=== PATIENT | male | born 1980 | race Caucasian/White ===

== ENCOUNTER 2024-03-20 18:50 | Emergency (ER) | payer SELFPAY ==
[2024-03-20 18:59] VITALS: BP 127/91; PULSE 76; RESP 18; TEMP 36.8; O2SAT 99; BMI 40.1
--- NOTE | 2024-03-20 20:21 | ED_ITS ---
HPI - Abdominal Pain 2 General: Chief Complaint: Abdominal Pain Stated Complaint: lump on abdomen Time Seen by Provider: 03/20/24 20:13 History of Present Illness: 44-year-old man who presents to the [facility] room with an intermittent protrusion in his central abdomen that appears to be ventral hernia on a picture that he has on his phone. I discussed with him that it is reducible and that I can get him follow-up with general surgery and they can discuss if it needs repaired. He has had no change in bowel movements. No nausea or vomiting. The hernia is not present right now. He says it bothers him most when he coughs. He also is complaining of a stiffness in his neck. He said that is been there for a while. I discussed that we could try some anti-inflammatories and then maybe he can follow with his primary doctor. He is had no injury. No neurologic deficits. At that point he became angry and said that if I was not going to do anything for him he was going to leave. His exam is benign and I just went ahead and discharged him Related Data Allergies Allergy/AdvReac Type Severity Reaction Status Date / Time No Known Allergies Allergy Verified 03/20/24 19:03 Review of Systems 2 Narrative: Constitutional symptoms: Negative except as documented in HPI. Skin symptoms: Negative except as documented in HPI. Eye symptoms: Negative except as documented in HPI. ENMT symptoms: Negative except as documented in HPI. Respiratory symptoms: Negative except as documented in HPI. Cardiovascular symptoms: Negative except as documented in HPI. Gastrointestinal symptoms: Negative except as documented in HPI. Genitourinary symptoms: Negative except as documented in HPI. Musculoskeletal symptoms: Negative except as documented in HPI. Neurologic symptoms: Negative except as documented in HPI. Psychiatric symptoms: Negative except as documented in HPI. Endocrine symptoms: Negative except as documented in HPI. Physical Exam 2 Narrative: EXAM NARRATIVE: General: Alert, no acute distress. Skin: warm and dry Head: Normocephalic Neck: Trachea midline Eye: Extraocular movements are intact. Ears, nose, mouth and throat: Oral mucosa moist Respiratory: Respirations are non-labored Musculoskeletal: Normal ROM Neurological: Alert and oriented, No focal neurological deficit observed. Psychiatric: Cooperative, appropriate mood & affect. Course 2 Vital Signs: Vital signs: Vital Signs Temperature 98.2 F 03/20/24 18:59 Pulse Rate 76 03/20/24 18:59 Respiratory Rate 18 03/20/24 18:59 Blood Pressure 127/91 03/20/24 18:59 Pulse Oximetry 99 03/20/24 18:59 Oxygen Delivery Me thod Room Air 03/20/24 18:59 MDM - Abdominal Pain Medical Decision Making Assessment and plan: Ventral hernia Neck stiffness ? Patient became angry saying if you are can to do anything for me I am just going to leave . - Discharged home - Discussed plan with patient. Answered any questions. - Evaluation and treatment of this problem were appropriate in the emergency setting. Lab Data 03/20/24 19:55 03/20/24 19:55 No radiology studies performed this visit Discharge Plan Discharge Patient Disposition: Home Clinical Impression: Ventral hernia, Neck stiffness Condition: Stable Discharge Orders: Discharge ED (Routine); Ordered 03/20/24 Ordered By: Alejandra Ocampo Patient Instructions: Opioid Safety, Pain Management Activity Restrictions/Additional Instructions: Thank you for choosing [facility] for your healthcare needs today. Please realize this is an emergency room and that we are providing you with a medical screening exam and this may not be complete and all inclusive of all the testing and or work up that you may need to determine your ailment or severity of your illness. You have been screened and evaluated and felt safe for discharge. Health conditions do change or evolve sometimes and as such it is important that you follow up with your Primary Doctor to be re checked, 3-5 days is a general good time frame for follow up. You are always welcome to return to the ED for re assessment if your symptoms are worsening or you have new concerns Coding Level of Care Code ED Commercial Decorator for Gabrielle Munoz
[2024-03-20 20:33] LABS: Anion Gap 15.4 (5-19); Blood Urea Nitrogen 19 mg/dL (6-20); Calcium 9.4 mg/dL (8.5-10.5); Carbon Dioxide 26 mmol/L (22-29); Chloride 101 mmol/L (98-107); Creatinine Clr Calc Pharmacy 128.7644; Glomerular Filtration Rate 81.9 mL/min (90-130); Glucose 99 mg/dL (65-115); Osmolality Calculated 288 mOsm/kg (285-295); Potassium 4.4 mmol/L (3.5-5.1); Sodium 138 mmol/L (136-145)
[2024-03-20 20:37] LABS: Basophils # 0.1 10^3/uL (0.0-0.1); Basophils % 0.6 %; Eosinophils # 0.8 10^3/uL (0.0-0.8); Eosinophils % 6.2 %; Hematocrit 44.7 % (37-53); Lymphocytes # 4.4 10^3/uL (0.8-4.8); Lymphocytes % 35.6 %; Mean Corpuscular HGB Conc 34.2 g/dL (30-55); Mean Corpuscular Hemoglobin 31.7 pg (27-33); Mean Corpuscular Volume 92.7 fl (82-101); Mean Platelet Volume 10.7 fL (7.4-10.4); Monocytes # 1.1 10^3/uL (0.2-0.9); Monocytes % 8.6 %; Neutrophils # 5.98 10^3/uL (1.8-7.7); Neutrophils % 48.4 %; Nucleated Red Blood Cells % 0 %; Platelet Count 268 10^3/cmm (157-399); Red Blood Count 4.82 10^6/uL (3.85-5.65); Red Cell Distribution Width 12.5 % (12.1-15.1); White Blood Count 12.36 10^3/uL (3.29-11.43)
== END 2024-03-20 20:27 | disposition left against medical advice (07) ==
PROVIDERS: Emergency Medicine; Emergency Provider Emergency Medicine
DX: K43.9 Ventral hernia without obstruction or gangrene (principal); M43.6 Torticollis
CPT/HCPCS: 36415; 80048; 85025; 99283

== ENCOUNTER 2024-04-09 09:24 | Emergency (ER) | payer SELFPAY ==
[2024-04-09 09:46] VITALS: BP 169/96; PULSE 98; RESP 30; TEMP 36.3; O2SAT 99; BMI 38.7
--- NOTE | 2024-04-09 10:00 | CTR_ITS ---
PROCEDURE INFORMATION: Exam: CT Abdomen And Pelvis With Contrast Exam date and time: 04/09/2024 11:16 AM Age: 44 years old Clinical indication: Abdominal pain; Localized; Left upper quadrant (luq); Prior surgery; Surgery date: 6+ months; Surgery type: Appy; Additional info: Luq pain TECHNIQUE: Imaging protocol: Computed tomography of the abdomen and pelvis with contrast. Radiation optimization: All CT scans at this facility use at least one of these dose optimization techniques: automated exposure control; mA and/or kV adjustment per patient size (includes targeted exams where dose is matched to clinical indication); or iterative reconstruction. Contrast material: OMNI 350; Contrast volume: 100 ml; Contrast route: INTRAVENOUS (IV); COMPARISON: CR XR chest 1V portable [id number] 04/09/2024 10:40 AM RADIATION DOSE METRICS: Total DLP (mGy-cm): 1191.43 FINDINGS: Lungs: Lung bases are clear as visualized. Liver: There is diffuse fatty infiltration of the liver. The liver is otherwise normal. Gallbladder and biliary ducts: Normal. No calcified stones. No ductal dilation. Pancreas: Normal. No ductal dilation. Spleen: Normal. No splenomegaly. Adrenal glands: Normal. No mass. Kidneys and ureters: Normal. No hydronephrosis. Stomach and bowel: There are scattered colonic diverticula. No large bowel wall thickening is appreciated. No dilated loops of large or small bowel is appreciated. Appendix: The appendix is not identified. Intraperitoneal space: Unremarkable. No free air. No significant fluid collection. Vasculature: The aorta is normal in caliber. There is calcified plaque involving the aorta and its branch vessels. Lymph nodes: Unremarkable. No enlarged lymph nodes. Urinary bladder: Unremarkable as visualized. Reproductive: Unremarkable as visualized. Bones/joints: Unremarkable. No acute fracture. Soft tissues: There is a left-sided rectus sheath hematoma measuring 10.9 x 5.9 x 13 cm in size. There appears to be active extravasation of contrast within the hematoma suggesting active bleeding. CT/CT abdomen pelvis w con* [id number] IMPRESSION: 1. Left rectus sheath hematoma with active bleeding. 2. Fatty infiltration of the liver. 3. Scattered colonic diverticula.
--- NOTE | 2024-04-09 10:00 | XR_ITS ---
WS: [id number] XR chest 1V portable [id number] REASON FOR EXAM: cough FINDINGS: The heart and the mediastinum are within normal limits. Calcified granulomas disease in both hemithoraces. No acute pulmonary parenchymal or pleural abnormality. Normal thoracic dextroscoliosis. XR/XR chest 1V portable [id number] IMPRESSION: No acute chest abnormality.
--- NOTE | 2024-04-09 10:01 | ED_ITS ---
HPI - Abdominal Pain 2 General: Chief Complaint: Abdominal Pain Stated Complaint: sever abd pain Time Seen by Provider: 04/09/24 09:55 Source: patient Mode of arrival: ambulatory Limitations: no limitations History of Present Illness: 44-year-old male states he has been havi ng left upper quadrant pain for the last week he states started after a coughing fit states today he sneezed and caused him to have severe pain. He states the pain sharp in nature he rates it a 9 out of 10 currently denies any fever denies any vomiting or diarrhea. Associated Symptoms: Denies chills, diarrhea, dysuria, fever(s), nausea and vomiting Related Data Previous Rx's Medication Instructions Recorded hydrocodone 5 mg-acetaminophen 325 1 tab PO Q6H PRN pain #14 tabs 04/09/24 mg tablet ondansetron 4 mg disintegrating 4 mg PO Q6H PRN nausea and 04/09/24 tablet vomiting #14 tabs Allergies Allergy/AdvReac Type Severity Reaction Status Date / Time No Known Allergies Allergy Verified 03/20/24 19:03 Review of Systems 2 Const: Denies: fever(s), chills, body aches or change in appetite ENMT: Denies: throat pain or dental pain Card: Denies: chest pain Resp: Reports: non-productive cough; Denies: dyspnea GI: Reports: abdominal pain; Denies: nausea, vomiting or diarrhea : Denies: dysuria Musc: Denies: neck pain or back pain Skin/Breast: Denies: rash Neuro: Denies: headache(s) Physical Exam 2 Const: COMMON NORMALS: no acute distress, patient oriented x3 and healthy appearing HENMT: COMMON NORMALS: normocephalic and atraumatic HEAD & SCALP: n ormocephalic and atraumatic Eye: COMMON NORMALS: Equal, round and reactive pupils present and EOMs intact bilaterally PUPIL: Yes Equal, round and reactive pupils present Neck/C-Spine: COMMON NORMALS: full ROM and supple Chest: COMMONS NORMALS: normal inspection of the chest Resp: COMMON NORMALS: normal respiratory effort, No retractions, No use of accessory muscles and clear to auscultation bilaterally AUSCULTATION: clear to auscultation bilaterally Cardio: COMMON NORMALS: regular rate, regular rhythm and No murmurs present (Cardio) RATE: regular rate RHYTHM: regular rhythm GI: COMMON NORMALS: Normal to inspection, nondistended, normoactive bowel sounds present, Soft to palpation and no masses PALPATION: Yes Soft to palpation OTHER: luq tenderness Extremity: COMMON NORMALS: normal to inspection and full ROM Neuro: COMMON NORMALS: patient oriented x3, moves all extremities and no focal motor deficits Psych: COMMON NORMALS: mental status grossly normal, Normal thought process present and cooperative THOUGHT PROCESS: Normal thought process present Skin: COMMON NORMALS: no rashes or lesions noted and no wounds GENERAL SKIN EXAM: no rashes or lesions noted Course 2 Vital Signs: Vital signs: Vital Signs Temperature 97.3 F L 04/09/24 09:46 Pulse Rate 65 04/09/24 12:10 Respiratory Rate 30 H 04/09/24 09:46 Blood Pressure 161/101 04/09/24 12:10 Pulse Oximetry 97 04/09/24 12:10 Oxygen Delivery Me thod Room Air 04/09/24 12:10 MDM - Abdominal Pain Medical Decision Making Patient presents here with abdominal pain he does have a rectus sheath hematoma we will prescribe him pain meds he is follow-up with PCP hemoglobin here is normal he is not on any blood thinners he is to return if worsening he understands agrees to plan Medical Records I reviewed the patient's medical records. Lab Data I reviewed the patient's lab results. 04/09/24 10:10 04/09/24 10:10 Labs/Radiology: Radiology Impressions Abdomen/Pelvis CT 04/09/24 10:00 IMPRESSION: 1. Left rectus sheath hematoma with active bleeding. 2. Fatty infiltration of the liver. 3. Scattered colonic diverticula. ADDENDUM: 04/09/24 1146 COMMENT: THIS REPORT CONTAINS FINDINGS THAT MAY BE CRITICAL TO PATIENT CARE. The exam findings were verbally communicated by me to ELAINA COE via telephone conference at 11:44 AM RECORDER HELPER SEISMOGRAPH on 04/09/2024. The findings were acknowledged and understood. Chest X-Ray 04/09/24 10:00 IMPRESSION: No acute chest abnormality. Laboratory Results WBC 16.40 10^3/uL (3.29-11.43) H 04/09/24 10:10 RBC 4.93 10^6/uL (3.85-5.65) 04/09/24 10:10 Hgb 15.20 g/dL (11.27-16.99) 04/09/24 10:10 Hct 45.1 % (37-53) 04/09/24 10:10 MCV 91.5 fl (82-101) 04/09/24 10:10 MCH 30.8 pg (27-33) 04/09/24 10:10 MCHC 33.7 g/dL (30-55) 04/09/24 10:10 RDW 12.3 % (12.1-15.1) 04/09/24 10:10 Plt Count 321 10^3/cmm (157-399) 04/09/24 10:10 MPV 10.6 fL (7.4-10.4) H 04/09/24 10:10 Neut % (Auto) 56.0 % 04/09/24 10:10 Lymph % (Auto) 30.6 % 04/09/24 10:10 [place] % (Auto) 7.7 % 04/09/24 10:10 Eos % (Auto) 4.5 % 04/09/24 10:10 Baso % (Auto) 0.6 % 04/09/24 10:10 Neut # (Auto) 9.18 10^3/uL (1.8-7.7) H 04/09/24 10:10 Lymph # (Auto) 5.0 10^3/uL (0.8-4.8) H 04/09/24 10:10 [place] # (Auto) 1.3 10^3/uL (0.2-0.9) H 04/09/24 10:10 Eos # (Auto) 0.7 10^3/uL (0.0-0.8) 04/09/24 10:10 Baso # (Auto) 0.1 10^3/uL (0.0-0.1) 04/09/24 10:10 Nucleated RBC % (auto) 0 % 04/09/24 10:10 Nucleated RBCs # 0.0 /100WBC 04/09/24 10:10 Sodium 137 mmol/L (136-145) 04/09/24 10:10 Potassium 4.1 mmol/L (3.5-5.1) 04/09/24 10:10 Chloride 101 mmol/L (98-107) 04/09/24 10:10 Carbon Dioxide 22 mmol/L (22-29) 04/09/24 10:10 Anion Gap 18.1 (5-19) 04/09/24 10:10 BUN 13 mg/dL (6-20) 04/09/24 10:10 Creatinine 1.1 mg/dL (0.7-1.2) 04/09/24 10:10 GFR Calculation 73.4 mL/min (90-130) L 04/09/24 10:10 Glucose 125 mg/dL (65-115) H 04/09/24 10:10 Calculated Osmolality 286 mOsm/kg (285-295) 04/09/24 10:10 Calcium 9.2 mg/dL (8.5-10.5) 04/09/24 10:10 Total Bilirubin 0.7 mg/dL (0.15-1.2) 04/09/24 10:10 AST 19 U/L (0-40) 04/09/24 10:10 ALT 25 U/L (0-41) 04/09/24 10:10 Alkaline Phosphatase 86 U/L (40-130) 04/09/24 10:10 Total Protein 7.3 g/dL (6.6-8.7) 04/09/24 10:10 Albumin 4.4 g/dL (3.5-5.2) 04/09/24 10:10 Globulin 2.9 g/dL (1.3-4.6) 04/09/24 10:10 Lipase 42 U/L (13-60) 04/09/24 10:10 All radiology interpretation(s) finalized by discharge Discharge Plan Discharge Patient Disposition: Home Clinical Impression: Hematoma of rectus sheath Condition: Stable Prescriptions: New hydrocodone-acetaminophen 5-325 mg tablet 1 tab PO Q6H PRN (Reason: pain) Qty: 14 0RF ondansetron 4 mg tablet,disintegrating 4 mg PO Q6H PRN (Reason: nausea and vomiting) Qty: 14 0RF Discharge Orders: Discharge ED (Routine); Ordered 04/09/24 Ordered By: Elaina Coe Discharge Diet: Advance as tolerated Discharge Activity: Resume usual activity Patient Instructions: Abdominal Pain (ED) Coding Level of Care Code ED Director Of Clinical Education for Gabrielle Munoz
[2024-04-09] MEDS: ondansetron 2 mg/ML SDV 2 mL 4 MG IVP (10:18)
[2024-04-09 10:20] VITALS: BP 156/103; PULSE 70; O2SAT 97
[2024-04-09] MEDS: HYDROmorphone 1 mg/mL INJ 1 mL IVP ×2 (10:21→12:07)
[2024-04-09 10:30] LABS: Basophils # 0.1 10^3/uL (0.0-0.1); Basophils % 0.6 %; Eosinophils # 0.7 10^3/uL (0.0-0.8); Eosinophils % 4.5 %; Hematocrit 45.1 % (37-53); Lymphocytes % 30.6 %; Mean Corpuscular HGB Conc 33.7 g/dL (30-55); Mean Corpuscular Hemoglobin 30.8 pg (27-33); Mean Corpuscular Volume 91.5 fl (82-101); Mean Platelet Volume 10.6 fL (7.4-10.4); Monocytes # 1.3 10^3/uL (0.2-0.9); Monocytes % 7.7 %; Neutrophils # 9.18 10^3/uL (1.8-7.7); Nucleated Red Blood Cells % 0 %; Platelet Count 321 10^3/cmm (157-399); Red Blood Count 4.93 10^6/uL (3.85-5.65); Red Cell Distribution Width 12.3 % (12.1-15.1)
[2024-04-09 10:47] LABS: Alanine Aminotransferase 25 U/L (0-41); Albumin Level 4.4 g/dL (3.5-5.2); Alkaline Phosphatase 86 U/L (40-130); Anion Gap 18.1 (5-19); Aspartate Amino Transferase 19 U/L (0-40); Blood Urea Nitrogen 13 mg/dL (6-20); Calcium 9.2 mg/dL (8.5-10.5); Carbon Dioxide 22 mmol/L (22-29); Chloride 101 mmol/L (98-107); Creatinine Clr Calc Pharmacy 114.8134; Globulin 2.9 g/dL (1.3-4.6); Glomerular Filtration Rate 73.4 mL/min (90-130); Glucose 125 mg/dL (65-115); Lipase 42 U/L (13-60); Osmolality Calculated 286 mOsm/kg (285-295); Potassium 4.1 mmol/L (3.5-5.1); Sodium 137 mmol/L (136-145); Total Bilirubin 0.7 mg/dL (0.15-1.2); Total Protein 7.3 g/dL (6.6-8.7)
[2024-04-09 11:00] VITALS: BP 156/102; PULSE 69; O2SAT 96
[2024-04-09] MEDS: iohexol 350 mg/mL 500 mL Btl (per mL) IV (11:18)
[2024-04-09 12:10] VITALS: BP 161/101; PULSE 65; O2SAT 97
[2024-04-09 12:35] VITALS: BP 156/94; PULSE 78; O2SAT 98
== END 2024-04-09 12:36 | disposition home or self-care (01) ==
PROVIDERS: Emergency Medicine; Emergency Provider Emergency Medicine
DX: S36.62XA Contusion of rectum, initial encounter (principal); X58.XXXA Exposure to other specified factors, initial encounter
CPT/HCPCS: 36415; 71045; 74177; 80053; 83690; 85025; 96374; 96375; 96376; 99285; J1171; J2405

== ENCOUNTER 2024-06-27 20:24 | Emergency (ER) | payer SELFPAY ==
[2024-06-27 20:27] VITALS: BP 154/89; PULSE 92; RESP 18; TEMP 37; O2SAT 97; BMI 40.1
[2024-06-27 21:18] LABS: Influenza A NEGATIVE (Negative); Influenza B NEGATIVE (Negative); Respiratory Syncytial Virus Ce NEGATIVE (Negative); SARS-CoV-2 PCR NEGATIVE (Negative)
--- NOTE | 2024-06-27 22:09 | XRR_ITS ---
PROCEDURE INFORMATION: Exam: XR Chest Exam date and time: 06/27/2024 10:12 PM Age: 44 years old Clinical indication: C/O cough TECHNIQUE: Imaging protocol: Radiologic exam of the chest. Views: 1 view. COMPARISON: CR XR chest 1V portable [id number] 04/09/2024 10:40 AM FINDINGS: Lungs: Unremarkable. Pleural spaces: Unremarkable. Heart/Mediastinum: Nonenlarged heart. Bones/joints: No acute fracture. XR/XR chest 1V portable [id number] IMPRESSION: No acute abnormality.
--- NOTE | 2024-06-27 22:09 | CTR_ITS ---
PROCEDURE INFORMATION: Exam: CT Abdomen And Pelvis With Contrast Exam date and time: 06/27/2024 10:31 PM Age: 44 years old Clinical indication: Other: Ruq swelling; Abdominal pain; Localized; Right upper quadrant (ruq); Prior surgery; Surgery date: 6+ months; Surgery type: Appy; PT C/O ruq abd wall pain with swelling that hurts whenever he coughs. ; Additional info: Severe RT abd pain, swelling to RT abd TECHNIQUE: Imaging protocol: Computed tomography of the abdomen and pelvis with contrast. Radiation optimization: All CT scans at this facility use at least one of these dose optimization techniques: automated exposure control; mA and/or kV adjustment per patient size (includes targeted exams where dose is matched to clinical indication); or iterative reconstruction. Contrast material: OMNI 350; Contrast volume: 100 ml; Contrast route: INTRAVENOUS (IV); COMPARISON: CT abdomen pelvis w con* [id number] 04/09/2024 11:16 AM RADIATION DOSE METRICS: Total DLP (mGy-cm): 1085.75 FINDINGS: Lungs: Partially visualized mild patchy opacities and tree-in-bud nodules in the lower lungs. Liver: Unremarkable. Gallbladder and biliary ducts: Gallbladder is present. Pancreas: Unremarkable. Spleen: Unremarkable. Adrenal glands: Unremarkable. Kidneys and ureters: Unremarkable. No urinary tract stone or dilation. Stomach and bowel: Unremarkable. No bowel obstruction. Appendix: The appendix is not seen. Intraperitoneal space: No free air. No large fluid collection. Vasculature: Mild calcified aortic atherosclerosis. Patent abdominal branch vessels. Lymph nodes: No enlarged lymph nodes. Urinary bladder: Unremarkable as visualized. Reproductive: No obvious abnormality. Bones/joints: Mild degenerative changes. No acute fracture. Soft tissues: In the soft tissues there is a small region of heterogeneous enlargement involving the right upper rectus musculature, likely a rectus sheath hematoma, 9.8 x 3.[address]/CT abdomen pelvis w con* [id number] IMPRESSION: 1. Small right upper rectus sheath hematoma. 2. Mild partially visualized lower lung opacities, which could indicate aspiration and/or pneumonia.
--- NOTE | 2024-06-27 22:18 | ED_ITS ---
HPI - URI/Sore Throat 2 General: Chief Complaint: Upper Respiratory Infection Stated Complaint: Nausa,Coughing, Feels like he tore a musle Time Seen by Provider: 06/27/24 21:51 Source: patient Mode of arrival: ambulatory Limitations: no limitations History of Present Illness: Patient is a 44-year-old male who presents to the emergency department complaining of cough and abdominal pain for the past few days. He states that in the past he had an upper respiratory infection and cough so hard that he strained his abdomen on the left side, now thinks that he did on the right side however this is much worse. He is also reporting some nausea and states that his bowel movements have been changed now for few months. Has never had colonoscopy. He is also reporting rhinorrhea, fatigue, and congestion. Reporting severe pain to the right abdomen that is worsened with coughing, improved with rest but he can still feel it at rest. Vitals within normal limits. MD elicited complaint: cough, rhinorrhea, nasal congestion and other (Abdominal pain) Onset (ago): day(s) Consistency: constant Severity: severe Pain scale (0-10): 10 Able to tolerate fluids by mouth: Yes Exacerbating factors: other (Coughing) Relieving factors: rest Associated symptoms: Reports abdominal pain, nasal congestion and nausea; Deny chills, chest pain, diarrhea, fever(s), headache(s) or vomiting Treatments prior to arrival: none Related Data Previous Rx's ?Medication ?Instructions ?Recorded hydrocodone 5 mg-acetaminophen 325 1 tab PO Q6H PRN pa in #14 tabs 04/09/24 mg tablet ondansetron 4 mg disintegrating 4 mg PO Q6H PRN nausea and 04/09/24 tablet vomiting #14 tabs benzonatate 200 mg capsule 200 mg PO BID PRN cough #20 caps 06/27/24 ketorolac 10 mg tablet 10 mg PO Q8H PRN pain #15 ta bs 06/27/24 Allergies Allergy/AdvReac Type Severity Reaction Status Date / Time No Known Allergies Allergy Verified 03/20/24 19:03 Review of Systems 2 General: Reports: 10 or more systems reviewed and unremarkable except in HPI and below Const: Reports: fatigue; Denies: fever(s), chills, change in appetite, change in weight or diaphoresis ENMT: Reports: nasal discharge and nasal congestion; Denies: throat pain or hoarseness Card: Denies: chest pain, palpitations or lightheadedness Resp: Reports: non-productive cough; Denies: dyspnea, productive cough or wheezing GI: Reports: abdominal pain, nausea and change in stool character; Denies: vomiting, diarrhea, constipation, bloating or hematochezia : Denies: flank pain, difficulty urinating, dysuria, urinary frequency or urinary urgency Musc: Denies: neck pain or back pain Skin/Breast: Denies: rash or new lesions Neuro: Denies: headache(s) or dizziness Physical Exam 2 Const: COMMON NORMALS: no acute distress, average body habitus, patient oriented x3, no limitations, healthy appearing, alert and well nourished G ENERAL APPEARANCE: cooperative and comfortable ORIENTATION/CONSCIOUSNESS: Yes awake HENMT: COMMON NORMALS: normocephalic, atraumatic, hearing grossly normal bilaterally, external ears normal, Normal external nose present, Normal nasal mucous membranes and turbinates present and moist oral mucous membranes HEAD & SCALP: normocephalic and atraumatic NOSE: Normal external nose present and Normal nasal mucous membranes and turbinates present EXTERNAL EAR: Yes external ears normal Eye: COMMON NORMALS: Equal, round and reactive pupils present, EOMs intact bilaterally, conjunctivae normal and normal visual garcia by confrontation C ONJUNCTIVA: Yes conjunctivae normal PUPIL: Yes Equal, round and reactive pupils present Neck/C-Spine: COMMON NORMALS: full ROM, supple, no meningeal signs and no JVD Resp: COMMON NORMALS: normal respiratory effort, No retractions, No use of accessory muscles and clear to auscultation bilaterally EFFORT & INSPECTION: Yes Actively coughing dry AUSCULTATION: clear to auscultation bilaterally, no crackles, no rales, no rhonchi and no wheezes Cardio: COMMON NORMALS: no JVD, regular rate, regular rhythm, S1 normal heart sound present, S2 normal heart sound present, No gallops present (Cardio), No clicks present (Cardio), No murmurs present (Cardio), No rub (Cardio) and Peripheral pulses 2+ throughout RATE: regular rate RHYTHM: regular rhythm HEART SOUNDS: S1 normal heart sound present and S2 normal heart sound present PERIPHERAL PULSES: Peripheral pulses 2+ throughout GI: COMMON NORMALS: No hepatosplenomegaly present and no masses A USCULTATION: Yes normoactive bowel sounds PALPATION: Yes Firmness to palpation present (GI), No Guarding due to palpation present (GI), No Rigid due to palpation and Yes No hepatosplenomegaly present RECTAL EXAM: Yes deferred OTHER: Reproducible tenderness to palpation to right upper quadrant, there is some palpable induration to the right abdominal muscles. Extremity: COMMON NORMALS: normal to inspection and full ROM Neuro: COMMON NORMALS: patient oriented x3, moves all extremities, no focal motor deficits and no sensory deficits noted SENSORIUM/ORIENTATION: Yes alert MENINGEAL SIGNS: Yes no meningeal signs Skin: COMMON NORMALS: no rashes or lesions noted GENERAL SKIN EXAM: no rashes or lesions noted Course 2 Vital Signs: Vital signs: Vital Signs Temperature 98.6 F 06/27/24 20:27 Pulse Rate 92 06/27/24 20:27 Respiratory Rate 18 06/27/24 20:27 Blood Pressure 154/89 06/27/24 20:27 Pulse Oximetry 97 06/27/24 20:27 Oxygen Delivery Me thod Room Air 06/27/24 20:27 MDM - URI/Sore Throat Medical Decision Making Patient presented with severe abdominal pain with coughing. He was concerned of upper respiratory infection, on exam though there was palpable induration/mass type feeling to his stomach. Also noted some bowel changes chronically, so CT was ordered showing a small right upper rectus sheath hematoma without active leaking. His labs were obtained and unremarkable, swab for COVID flu and RSV was negative. I spoke with on-call surgeon, Dr. De La Cruz, who agrees that this can be treated conservatively as long as it is contained and patient is not on blood thinners, which she has not. Patient notes drastic increase in his symptoms and pain after receiving Tessalon Perles here as well as Toradol, will send prescriptions in for this and have him follow-up with primary care routinely. Return precautions given to which he verbalized understanding. Lab Data 06/27/24 22:24 06/27/24 22:24 Radiology Impressions Abdomen/Pelvis CT 06/27/24 22:09 IMPRESSION: 1. Small right upper rectus sheath hematoma. 2. Mild partially visualized lower lung opacities, which could indicate aspiration and/or pneumonia. Chest X-Ray 06/27/24 22:09 IMPRESSION: No acute abnormality. Laboratory Results WBC 13.76 10^3/uL (3.29-11.43) H 06/27/24 22:24 RBC 4.63 10^6/uL (3.85-5.65) 06/27/24 22:24 Hgb 14.20 g/dL (11.27-16.99) 06/27/24 22:24 Hct 42.2 % (37-53) 06/27/24 22:24 MCV 91.1 fl (82-101) 06/27/24 22:24 MCH 30.7 pg (27-33) 06/27/24 22:24 MCHC 33.6 g/dL (30-55) 06/27/24 22:24 RDW 11.9 % (12.1-15.1) L 06/27/24 22: Plt Count 169 10^3/cmm (157-399) 06/27/24 22:24 MPV 10.6 fL (7.4-10.4) H 06/27/24 22:24 Neut % (Auto) 71.8 % 06/27/24: Lymph % (Auto) 19.8 % 06/27/24:24 [place] % (Auto) 7.0 % 06/27/24: Eos % (Auto) 0.9 % 06/27/24: Baso % (Auto) 0.1 % 06/27/24: Neut # (Auto) 9.86 10^3/uL (1.8-7.7) H 06/27/24: Lymph # (Auto) 2.7 10^3/uL (0.8-4.8) 06/27/24 22:24 [place] # (Auto) 1.0 10^3/uL (0.2-0.9) H 06/27/24 22:24 Eos # (Auto) 0.1 10^3/uL (0.0-0.8) 06/27/24: Baso # (Auto) 0.0 10^3/uL (0.0-0.1) 06/27/24:24 Nucleated RBC % (auto) 0 % 06/27/24: Nucleated RBCs # 0.0 /100WBC 06/27/24 22:24 Sodium 141 mmol/L (136-145) 06/27/24 22:24 Potassium 3.6 mmol/L (3.5-5.1) 06/27/24 22:24 Chloride 103 mmol/L (98-107) 06/27/24 22:24 Carbon Dioxide 28 mmol/L (22-29) 06/27/24 22:24 Anion Gap 13.6 (5-19) 06/27/24 22:24 BUN 14 mg/dL (6-20) 06/27/24 22:24 Creatinine 0.9 mg/dL (0.7-1.2) 06/27/24 22:24 GFR Calculation 92.5 mL/min (90-130) 06/27/24 22:24 Glucose 107 mg/dL (65-115) 06/27/24 22:24 Calculated Osmolality 293 mOsm/kg (285-295) 06/27/24 22:24 Calcium 9.0 mg/dL (8.5-10.5) 06/27/24 22:24 Total Bilirubin 0.4 mg/dL (0.15-1.2) 06/27/24 22:24 AST 22 U/L (0-40) 06/27/24 22:24 ALT 25 U/L (0-41) 06/27/24 22:24 Alkaline Phosphatase 68 U/L (40-130) 06/27/24 22:24 Total Protein 7.0 g/dL (6.6-8.7) 06/27/24 22:24 Albumin 4.2 g/dL (3.5-5.2) 06/27/24 22:24 Globulin 2.8 g/dL (1.3-4.6) 06/27/24 22:24 Lipase 29 U/L (13-60) 06/27/24 22:24 Amorphous Sediment Not Reportable 06/27/24 22:58 Influenza A (PCR) Negative (Negative) 06/27/24 20:34 Influenza Type B (PCR) Negative (Negative) 06/27/24 20:34 RSV (PCR) Negative (Negative) 06/27/24 20:34 SARS-CoV-2 (PCR) Negative (Negative) 06/27/24 20:34 All radiology interpretation(s) finalized by discharge Discharge Plan Discharge Patient Disposition: Home Clinical Impression: Hematoma of rectus sheath Qualifiers: Encounter type: initial encounter Qualified Code(s): S30.1XXA - Contusion of abdominal wall, initial encounter Condition: Stable Prescriptions: New benzonatate 200 mg capsule 200 mg PO BID PRN (Reason: cough) Qty: 20 0RF ketorolac 10 mg tablet 10 mg PO Q8H PRN (Reason: pain) Qty: 15 0RF No Action hydrocodone-acetaminophen 5-325 mg tablet 1 tab PO Q6H PRN (Reason: pain) Qty: 14 0RF ondansetron 4 mg tablet,disintegrating 4 mg PO Q6H PRN (Reason: nausea and vomiting) Qty: 14 0RF Discharge Orders: Discharge ED (Routine); Ordered 06/27/24 Ordered By: Marcos Higgins Patient Instructions: Hematoma (ED) Activity Restrictions/Additional Instructions: Take Toradol as prescribed, benzonatate as prescribed for your cough. Ice to the area. Rest and recovery. Follow-up with your primary care provider. Return with any severe worsening of pain or other symptoms that you have. Print Language: Solomon Islander Coding Level of Care Code ED Paperback Machine Operator for Gabrielle Munoz
[2024-06-27 22:32] LABS: Basophils % 0.1 %; Eosinophils # 0.1 10^3/uL (0.0-0.8); Eosinophils % 0.9 %; Hematocrit 42.2 % (37-53); Lymphocytes # 2.7 10^3/uL (0.8-4.8); Lymphocytes % 19.8 %; Mean Corpuscular HGB Conc 33.6 g/dL (30-55); Mean Corpuscular Hemoglobin 30.7 pg (27-33); Mean Corpuscular Volume 91.1 fl (82-101); Mean Platelet Volume 10.6 fL (7.4-10.4); Neutrophils # 9.86 10^3/uL (1.8-7.7); Neutrophils % 71.8 %; Nucleated Red Blood Cells % 0 %; Platelet Count 169 10^3/cmm (157-399); Red Blood Count 4.63 10^6/uL (3.85-5.65); Red Cell Distribution Width 11.9 % (12.1-15.1); White Blood Count 13.76 10^3/uL (3.29-11.43)
[2024-06-27] MEDS: iohexol 350 mg/mL 500 mL Btl (per mL) IV (22:34)
[2024-06-27 22:51] LABS: Alanine Aminotransferase 25 U/L (0-41); Albumin Level 4.2 g/dL (3.5-5.2); Alkaline Phosphatase 68 U/L (40-130); Anion Gap 13.6 (5-19); Aspartate Amino Transferase 22 U/L (0-40); Blood Urea Nitrogen 14 mg/dL (6-20); Carbon Dioxide 28 mmol/L (22-29); Chloride 103 mmol/L (98-107); Creatinine Clr Calc Pharmacy 143.0715; Globulin 2.8 g/dL (1.3-4.6); Glomerular Filtration Rate 92.5 mL/min (90-130); Glucose 107 mg/dL (65-115); Lipase 29 U/L (13-60); Osmolality Calculated 293 mOsm/kg (285-295); Potassium 3.6 mmol/L (3.5-5.1); Sodium 141 mmol/L (136-145); Total Bilirubin 0.4 mg/dL (0.15-1.2)
[2024-06-27] MEDS: ketorolac 30 mg/mL INJ IVP (22:54)
[2024-06-27] MEDS: benzonatate 100 mg Capsule 200 MG PO (22:54)
[2024-06-27] MEDS: dexamethasone 10 mg/mL INJ IVP (22:54)
[2024-06-27 23:28] LABS: Bilirubin Urine 1+ (Negative); Blood Urine Negative (Negative); Glucose Urine UA Negative (Normal); Ketones Urine Trace (Negative); Leukocyte Esterase Urine Negative (Negative); Nitrate Urine Negative (Negative); Protein Urine 1+ (Negative); Urine Appearance Clear (CLEAR); Urine Color Dark Yellow (Yellow); pH Urine 6.5 (5-7)
[2024-06-27 23:41] LABS: Specific Gravity, Urine 1.045 (1.005-1.030)
[2024-06-27 23:42] LABS: Add Urine Microscopic? YES; Bacteria Urine TRACE /hpf; Mucus Urine TRACE /hpf; RBC Urine 0-4 /hpf (0-2); Squamous Epithelial Cell Urine 0-4 /hpf (0-5); WBC Urine 0-4 /hpf (0-5)
[2024-06-27 23:44] VITALS: BP 146/91; PULSE 88; RESP 16; O2SAT 98
== END 2024-06-27 23:43 | disposition home or self-care (01) ==
PROVIDERS: Emergency Medicine; Emergency Provider Physician Assistant
DX: S30.1XXA Contusion of abdominal wall, initial encounter (principal); Z11.52 Encounter for screening for COVID-19; X58.XXXA Exposure to other specified factors, initial encounter
CPT/HCPCS: 36415; 71045; 74177; 80053; 81001; 83690; 85025; 87637; 96374; 96375; 99285; J1100; J1885

== ENCOUNTER 2024-12-26 13:52 | Emergency (ER) | payer SELFPAY ==
[2024-12-26 13:54] VITALS: BP 158/92; PULSE 77; RESP 16; TEMP 36.7; O2SAT 97
--- OUTSIDE RECORDS SUMMARY | 2024-12-26 13:55 | XMS_ITS | Clinical Summary ---
Author Organization [facility] Address [address] Attn: Epic Prelude ADT [place] [address] Care Team Providers Care Forest Fire Warden Name Role Phone Unavailable Primary Care Provider Unavailabl e Allergies No known active allergies Active Problems Problem Noted Date Diagnosed Date Right lower quadrant abdominal abscess 2 Immunizations Immunization Administration Dates Next Due (PNEUMOVAX 23)(50 YRS UP) PN EUMOCOCCAL POLYSACCHARIDE (PPV23) 0.5 ML, IM 02/12/2012 Influenza Vaccine Split 3+ Yrs PF IM 02/12/2012 Family History Medical History Relation Name Comments Heart Disease Father Other Mother MVA Unknown Sister Healthy Son 1 Healthy Son 2 Relation Name Status Comments Father Alive Mother Sister Alive Son 1 Alive Son 2 Alive Social History Tobacco Use Types Packs/Day Years Used Date Smoking Tobacco: Every Day Cigarettes Smokeless Tobacco: Former Alcohol Use Standard Drinks/Week Comments Yes 0.8 (1 standard drink = 0.6 oz p ure alcohol) Sex and Gender Information Value Date Recorded Sex Assigned at Not on file 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
--- OUTSIDE RECORDS SUMMARY | 2024-12-26 13:55 | XMS_ITS | Encounter Summary ---
Author Organization [facility] Address [address] [place] [address] Care Team Providers Care Cra Name Role Phone Unavailable Primary Care Provider Unavailabl e Encounter Details Date Type Department Care Team (Latest Contact Info) Description 05/23/1999 Outpatient Historical [facility] [place] [address] 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
--- OUTSIDE RECORDS SUMMARY | 2024-12-26 13:55 | XMS_ITS | Encounter Summary ---
Author Organization [facility] Address 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
--- OUTSIDE RECORDS SUMMARY | 2024-12-26 13:55 | XMS_ITS | Clinical Summary ---
Author Organization [facility] Address [address] [place] [address] Phone Care Team Providers Care Office 365 Consultant Name Role Phone Unavailable Primary Care Provider Unavailabl e Allergies No known active allergies Medications oxyCODONE-aceta minophen (PERCOCET) 5-325 mg Oral tablet Take 1-2 Tabs by mouth every 4 hours as needed for Pain, Moderate (For Pain Scale 4-6). 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 Gender Identity Not on file Sexual Orientation Not on file Occupation Industry Job Start Date Job End Date Not on file Not on file Not on file Not on file Last Filed Vital Signs Vital Sign Reading Time Taken Comments Blood Pressure 123/73 02/12/2012 4:01 PM CDT Pulse 88 02/12/2012 4:01 PM CDT Temperature 37.1 C (98.7 F) 02/12/2012 4:06 PM CDT Respiratory Rate 20 02/12/2012 4:01 PM CDT Oxygen Saturation 100% 02/12/2012 4:01 PM CDT Inhaled Oxygen Concentration - - Weight 110 kg (242 lb 9.6 oz) 02/12/2012 2:22 AM CDT Height 177.8 cm (5' 10 ) 02/12/2012 2:22 AM CDT Body Mass Index 34.81 02/12/2012 2:22 AM CDT Plan of Treatment Health Maintenance Due Date Last Done Comments HPV VACCINES (1 - Male 3-dose series) 1997 DTAP/TDAP/TD VACCINES (1 - Tdap) 2001 HEPATITIS B VACCINES (1 of 3 - 19+ 3-dose series) 02/04 INFLUENZA VACCINE (#1) 2024 02/12/2012 Medical Devices Explanted Type Area Automotive Service Manager Device Identifier Shelf Expiration Date Model / Serial / Lot Pin Explanted:Qty: 1 on 02/07/2010 at [facility] Advance Directives For more information, please contact: [phone] * Full Code (Latest Code Status on File) Date Activated Date Inactivated Comments 02/12/2012 2:30 AM 02/12/2012 7:11 PM * Full Code Date Activated Date Inactivated Comments 02/07/2010 11:35 AM 02/08/2010 2:32 AM * Full Code Date Activated Date Inactivated Comments 02/07/2010 11:13 AM 02/07/2010 11:35 AM
[2024-12-26] MEDS: tetanus-dipt-pertussis 0.5 mL SDV IM (14:37)
--- NOTE | 2024-12-26 15:36 | ED_ITS ---
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 No active bleeding. Patient told me he was not sure of his last tetanus he was given tetanus. Related Data Previous Rx's ?Medication ?Instructions ?Recorded hydrocodone 5 mg-acetaminophen 325 1 tab PO Q6H PRN pa in #14 tabs 04/09/24 mg tablet ondansetron 4 mg disintegrating 4 mg PO Q6H PRN nausea and 04/09/24 tablet vomiting #14 tabs benzonatate 200 mg capsule 200 mg PO BID PRN cough #20 caps 06/27/24 ketorolac 10 mg tablet 10 mg PO Q8H PRN pain #15 ta bs 06/27/24 Allergies Allergy/AdvReac Type Severity Reaction Status Date / Time No Known Allergies Allergy Verified 12/26/24 13:58 Physical Exam Extremity: OTHER: Avulsion laceration to the tip of the left thumb Procedures Laceration Laceration 1: Site: hand Side (If applicable): left (Thumb) Size (cm): 1 Description: flap Depth: simple, single layer Local Anesthetic: other anesthetic (Digital nerve block) Pre-repair: irrigated extensively Skin layer closed with: nylon Size (cm): 5-0 Number of sutures: 2 Nerve Block Nerve Block 1: Time out performed: Yes Local Anesthetic: lidocaine 1% Amount of anesthesia used (mL): 4 Nerve Blocks: digital (First left digit) Course Vital Signs: Vital signs: Vital Signs Temperature 98.1 F 12/26/24 13:54 Pulse Rate 77 12/26/24 13:54 Respiratory Rate 16 12/26/24 13:54 Blood Pressure 158/92 12/26/24 13:54 Pulse Oximetry 97 12/26/24 13:54 Oxygen Delivery Nm thod Room Air 12/26/24 13:54 MDM - Wound/Laceration Medical Decision Making Lateral portion avulsion flap sutured with 5-0 nylon. Portion extending to the edge of the nail was Steri-Stripped. Discussed with patient placing sutures however would require trephination of the nail which she wanted to avoid. Wound care instructions given send keep wound clean and dry sutures to removed in 7 to 10 days. No radiology studies performed this visit Discharge Plan Discharge Patient Disposition: Home Clinical Impression: Laceration Condition: Stable Prescriptions: No Action hydrocodone-acetaminophen 5-325 mg tablet 1 tab PO Q6H PRN (Reason: pain) Qty: 14 0RF ondansetron 4 mg tablet,disintegrating 4 mg PO Q6H PRN (Reason: nausea and vomiting) Qty: 14 0RF benzonatate 200 mg capsule 200 mg PO BID PRN (Reason: cough) Qty: 20 0RF ketorolac 10 mg tablet 10 mg PO Q8H PRN (Reason: pain) Qty: 15 0RF Discharge Orders: Discharge ED (Routine); Ordered 12/26/24 Ordered By: Iglesia Willams Discharge Diet: Usual diet Discharge Activity: Resume usual activity Patient Instructions: Opioid Safety, Pain Management, Patient Portal & Gary Instructions Activity Restrictions/Additional Instructions: Thank you for choosing [facility] for your healthcare needs today. It is very important that you follow up as instructed or that you return to the Emergency Department should you have concerns or if your condition changes or worsens in any way. You are seen emergency room the laceration to the left tip of your thumb. This was secured with a combination of sutures and Steri-Strips. Leave the suture Steri-Strips in place as long as possible sutures should come out in 10 to 14 days apply small bit of topical antibiotic ointment to the suture line once or twice a day. Do not soak the wound keep the wound clean and dry. 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
== END 2024-12-26 16:40 | disposition home or self-care (01) ==
PROVIDERS: Emergency Provider Family Medicine
DX: S61.021A Laceration with foreign body of right thumb without damage to nail, initial encounter (principal); W26.9XXA Contact with unspecified sharp object(s), initial encounter
CPT/HCPCS: 12001; 90471; 90715; 99283; J9999